=== PATIENT | female | born 1975 | race Caucasian/White ===

== ENCOUNTER → 2017-02-10 | Outpatient (CLI) | payer BC ==
--- NOTE | 2017-02-10 19:19 | RESP ---
DATE OF SERVICE: 02/10/2017 DATE OF STUDY: 02/10/2017 ATTENDING PHYSICIAN: Franklin Oliveira M.D. The patient's FVC was 4.61, which is 111% predicted, FEV1 3.61, which is 108% predicted. FEV1/FVC ratio was normal. There were no bronchodilators given. Total lung capacity was at 125% predicted, residual volume was 164% predicted. Diffusion capacity was 144% predicted. IMPRESSION: 1. No evidence of any obstructive lung disease. 2. Lung volumes consistent with hyperinflation. 3. Increased diffusion capacity. 4. No bronchodilators were given. ABBY ROCKWELL MD DR: CARIDAD/toan JOB#: [id number] / [id number] MTDD
== END | disposition home or self-care (01) ==
LOC: PF 10:07
PROVIDERS: ATTEND Internal Medicine Pulmonary Disease
DX: R06.02 Shortness of breath (principal)
CPT/HCPCS: 94010; 94729